=== PATIENT | male | born 1950 | race Caucasian/White ===

== ENCOUNTER 2018-01-28 09:43 | Inpatient (IN) | payer MEDICARE ==
[2018-01-28 09:59] VITALS: BMI 29.0
--- NOTE | 2018-01-28 10:43 | C.PDOC ---
History Of Present Illness 67 year old male sent to the ED by Dr. Caba for evaluation of pilonidal cyst/abscess. Patient denies any fever, chills, abdominal pain, vomiting, or other associated symptoms. There is no redness or drainage from the site. Time Seen by Provider: 01/28/18 09:49 Chief Complaint (Nursing): Abnormal Skin Integrity History Per: Patient History/Exam Limitations: no limitations Onset/Duration Of Symptoms: Days Current Symptoms Are (Timing): Still Present Quality Of Symptoms: Painful, Swollen Past Medical History Reviewed: Historical Data, Nursing Documentation, Vital Signs Vital Signs: Last Vital Signs Temp 98.0 F 01/28/18 09:59 Pulse 83 01/28/18 09:59 Resp 18 01/28/18 09:59 BP 103/86 01/28/18 09:59 Pulse Ox 95 01/28/18 09:59 - Medical History PMH: Arthritis, Diabetes, HTN, Hypercholesterolemia Other Surgeries: Cataract surgery - [facility] ENDOSC POLYPECTOMY OF LG INTEST (06/09/14) Family History: States: No Known Family Hx - Social History Hx Tobacco Use: No Hx Alcohol Use: No Hx Substance Use: No - Immunization History Hx Tetanus Toxoid Vaccination: Yes Hx Influenza Vaccination: No Hx Pneumococcal Vaccination: Yes Review Of Systems Except As Marked, All Systems Reviewed And Found Negative. Constitutional: Negative for: Fever, Chills Cardiovascular: Negative for: Chest Pain Respiratory: Negative for: Shortness of Breath Gastrointestinal: Negative for: Vomiting, Abdominal Pain Skin: Positive for: Other (Pilonidal abscess) Physical Exam - Physical Exam Appears: Well, Non-toxic, No Acute Distress Skin: Warm, Dry, Other (Small area of gluteal cleft appears swollen, with no erythema or fluctuance) Head: Atraumatic, Normacephalic Eye(s): bilateral: Normal Inspection Neck: Normal ROM, Supple Chest: Symmetrical Cardiovascular: Rhythm Regular, No Murmur Respiratory: Normal Breath Sounds, No Accessory Muscle Use Gastrointestinal/Abdominal: Soft, No Tenderness, No Distention Extremity: Bilateral: Atraumatic, Normal Color And Temperature, Normal ROM Pulses: Left Radial: Normal, Right Radial: Normal Neurological/Psych: Oriented x3, Normal Speech ED Course And Treatment - Laboratory Results Result Diagrams: 01/28/18 10:52 01/28/18 10:52 Lab Interpretation: Normal ECG: Interpreted By Me ECG Rhythm: Sinus Rhythm ECG Interpretation: Normal Rate From EC O2 Sat by Pulse Oximetry: 95 (RA) Pulse Ox Interpretation: Normal - Radiology CXR: Interpreted by Me CXR Interpretation: Yes: No Acute Disease Progress Note: Treated with IVF NSS Medical Decision Making Medical Decision Making: Impression: 67 year old with pilonidal abscess Plan: --EKG --CMP --CBC --PTT --Chest x-ray --IV fluids --Urinalysis --Reassess and disposition Paged Dr. Caba, plans to take patient to the OR. 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 - Scribe Statement The provider has reviewed the documentation as recorded by the Scribe (Beth Palomo) All medical record entries made by the Scribe were at my direction and personally dictated by me. I have reviewed the chart and agree that the record accurately reflects my personal performance of the history, physical exam, medical decision making, and the department course for this patient. I have also personally directed, reviewed, and agree with the discharge instructions and disposition. Decision To Admit - Pt Status Changed To: Hospital Disposition Of: SDS- Endo,OR,Cath,IR - . Bed Request Type: Same Day Surgery Admitting Physician: Dez Caba Patient Diagnosis: Abscess
[2018-01-28 10:58] LABS: BASO # 0.1 K/uL (0.0-0.2); EOS # 0.4 K/uL (0.0-0.7); EOS % 5.7 % (0.0-4.0); HEMOGLOBIN 12.9 g/dL (12.0-18.0); LYMPH # 1.7 K/uL (1.0-4.3); LYMPH % 25.9 % (20.0-40.0); MEAN CELL VOLUME 85.6 fL (80.0-94.0); MEAN CORPUSCULAR HEMOGLOBIN 28.7 pg (27.0-31.0); MEAN CORPUSCULAR HGB CONC 33.6 g/dL (33.0-37.0); MEAN PLATELET VOLUME 8.6 fL (7.2-11.7); MONO # 0.5 K/uL (0.0-0.8); MONO % 7.4 % (0.0-10.0); NRBC % 0.1 % (0.0-2.0); RBC 4.5 Mil/uL (4.40-5.90); RED CELL DISTRIBUTION WIDTH 13.6 % (11.5-14.5); WHITE BLOOD COUNT 6.6 K/uL (4.8-10.8)
[2018-01-28 11:03] LABS: SQUAMOUS EPITHIAL < 1 /hpf (0-5); URINE BILIRUBIN NEGATIVE (NEGATIVE); URINE BLOOD 1+ (NEGATIVE); URINE CLARITY Clear (Clear); URINE COLOR Yellow (YELLOW); URINE GLUCOSE (UA) NORMAL (Normal); URINE LEUKOCYTE ESTERASE NEG Leu/uL (Negative); URINE PROTEIN NEGATIVE (NEGATIVE); URINE UROBILINOGEN NORMAL mg/dL (0.2-1.0)
[2018-01-28 11:05] LABS: INR 1.2; PROTHROMBIN TIME 12.7 SECONDS (9.7-12.2)
--- NOTE | 2018-01-28 11:05 | RAD ---
Date of service: 01/28/2018 HISTORY: SOB COMPARISON: No prior. TECHNIQUE: Chest PA and lateral FINDINGS: LUNGS: No active pulmonary disease. PLEURA: Elevated right hemidiaphragm, nonspecific. No change from prior. No pleural effusion or pneumothorax. CARDIOVASCULAR: Normal. OSSEOUS STRUCTURES: No significant abnormalities. VISUALIZED UPPER ABDOMEN: Normal. OTHER FINDINGS: None. IMPRESSION: No active disease.
[2018-01-28] MEDS: Sodium Chloride 0.9% 1,000 ML IV SCH ×2 (11:11→20:56)
[2018-01-28 11:14] LABS: ALB/GLOB RATIO 1.4 (1.0-2.1); ALT/SGPT 35 U/L (21-72); AST/SGOT 20 U/L (17-59); BLOOD UREA NITROGEN 19 mg/dL (9-20); CALCIUM 9.3 mg/dl (8.6-10.4); GFR NON-AFRICAN AMERICAN > 60
[2018-01-28] MEDS ORDERED: ceFAZolin 1 gm FROZEN Premix 1 GM/50 ML ML IVPB ONE (12:15)
[2018-01-28] MEDS ORDERED: Midazolam 2 MG/2 ML VIAL ONE (12:20)
[2018-01-28] MEDS ORDERED: Propofol 10 mg/ml Inj (20 ML) ONE (12:20)
[2018-01-28] MEDS: Bupivacaine 0.25% 20 ML INJ IJ ONE (12:40)
[2018-01-28] MEDS ORDERED: HYDROmorphone 0.5 mg/0.5 ml ISec IVP PRN (12:50)
[2018-01-28] MEDS ORDERED: Oxycodone/Acetaminophen 5/325 mg Tab PO PRN (13:52)
[2018-01-28] MEDS ORDERED: ceFAZolin IV 1 gm in Dextrose 1 GM/50 ML BAG IVPB SCH (16:00)
[2018-01-28] MEDS: ceFAZolin IV 1 gm in Dextrose 1 GM/50 ML BAG IVPB SCH (23:06)
[2018-01-29] MEDS: ceFAZolin IV 1 gm in Dextrose 1 GM/50 ML BAG IVPB SCH ×3 (05:32→13:45)
[2018-01-29] MEDS: Sodium Chloride 0.9% 1,000 ML IV SCH ×2 (06:45→10:59)
--- NOTE | 2018-01-29 07:57 | OP ---
PROCEDURE DATE: 01/28/2018 PREOPERATIVE DIAGNOSIS: Infected sacral mass. POSTOPERATIVE DIAGNOSIS: Infected sacral mass. PROCEDURE PERFORMED: Wide and deep excision of sacral mass with removal of sacral abscess. SURGEON: Dez Caba MD ANESTHESIA: General. BLOOD LOSS: 20 mL. POSTOPERATIVE CONDITION: Stable. INDICATION FOR SURGERY: This is a 67-year-old male, presents with an infection on his infected mass on his sacral area which does not appear to be pilonidal cyst. He will now undergo wide and deep excision along with drainage. DESCRIPTION OF THE PROCEDURE: The patient was taken to the operating room, placed in prone position. IV sedation was administered along with local anesthesia. A generous elliptical incision was made surrounding the infected mass. The cavity was traced inferiorly and completely excised. Bleeding was controlled using a Bovie, and a larger blood vessel was repaired. The wound was pulse irrigated with saline solution, and a partial tissue transfer closure was performed by fully mobilizing, performing counter incisions and using heavy Monocryl. The central portion of the wound was packed up with saline gauze. The patient tolerated the procedure well and returned to recovery room in stable condition. Dez Caba MD
[2018-01-29 08:35] LABS: BASO # 0.1 K/uL (0.0-0.2); BASO % 0.7 % (0.0-2.0); EOS # 0.4 K/uL (0.0-0.7); EOS % 4.7 % (0.0-4.0); HEMOGLOBIN 12.1 g/dL (12.0-18.0); LYMPH # 2.3 K/uL (1.0-4.3); LYMPH % 30.4 % (20.0-40.0); MEAN CELL VOLUME 85.2 fL (80.0-94.0); MEAN CORPUSCULAR HEMOGLOBIN 29.2 pg (27.0-31.0); MEAN CORPUSCULAR HGB CONC 34.3 g/dL (33.0-37.0); MEAN PLATELET VOLUME 8.3 fL (7.2-11.7); MONO # 0.6 K/uL (0.0-0.8); MONO % 7.6 % (0.0-10.0); NEUT # 4.3 K/uL (1.8-7.0); NEUT % 56.6 % (50.0-75.0); NRBC % 0.1 % (0.0-2.0); RBC 4.15 Mil/uL (4.40-5.90); RED CELL DISTRIBUTION WIDTH 13.5 % (11.5-14.5); WHITE BLOOD COUNT 7.6 K/uL (4.8-10.8)
[2018-01-29 09:17] LABS: BLOOD UREA NITROGEN 14 mg/dL (9-20); CALCIUM 8.8 mg/dl (8.6-10.4); GFR NON-AFRICAN AMERICAN > 60
[2018-01-29] MEDS ORDERED: Influenza Vaccine 60 MCG/0.5 ML SYR (3 yr & up) IM ONE (10:00)
[2018-01-29] MEDS: Bupivacaine 0.25% 20 ML INJ IJ ONE (13:20)
[2018-01-29] MEDS ORDERED: Propofol 10 mg/ml Inj (20 ML) ONE (13:44)
[2018-01-29] MEDS ORDERED: Lidocaine Hydrochloride 20 ML INJ ONE (13:44)
[2018-01-29] MEDS ORDERED: Midazolam 2 MG/2 ML VIAL ONE (13:44)
[2018-01-29] MEDS ORDERED: Bupivacaine 0.25% 20 ML INJ IJ ONE (13:44)
[2018-01-29] MEDS ORDERED: Bacitracin Ointment 30 GM TUBE ONE (14:01)
[2018-01-29] MEDS ORDERED: HYDROmorphone 0.5 mg/0.5 ml ISec IVP PRN (14:09)
[2018-01-29 16:02] VITALS: BP 112/72; PULSE 71; RESP 20; TEMP 97.4; O2SAT 96
--- NOTE | 2018-01-29 23:10 | CARD ---
APPROVED REPORT Date of service: 01/28/2018 EKG Measurement Heart [id number] <Conclusion> Normal sinus rhythm Normal ECG
--- NOTE | 2018-01-30 02:51 | OP ---
PROCEDURE DATE: 01/29/2018 PREOPERATIVE DIAGNOSIS: Status post sacral abscess and excision of sacral mass. POSTOPERATIVE DIAGNOSIS: Status post sacral abscess and excision of sacral mass. PROCEDURE PERFORMED: Debridement and re-drainage of sacral abscess with advancement flap closure. SURGEON: Dez Caba MD TYPE OF ANESTHESIA: General. ESTIMATED BLOOD LOSS: 30 mL. POSTOPERATIVE CONDITION: Stable. INDICATIONS FOR SURGERY: This is a 67-year-old male who underwent drainage of a sacral abscess yesterday with excision of infected sacral mass today. The wound was left open and packed. Today, he is brought back to the operating room for further debridement, pulse irrigation, and closure. DESCRIPTION OF PROCEDURE: The patient was taken to the operating room, placed in the prone position. IV sedation was administered. The sacral buttock area was prepped and draped. The area of the open wound was anesthetized with 1% lidocaine and the wound was pulse irrigated with saline and Kantrex solution. All necrotic tissue was further debrided and any remaining collections were drained and cultured. Bleeding was controlled using the Bovie. Full-thickness tissue flaps were raised including counterincisions and an advancement flap closure was performed with multiple layers of Monocryl, subcuticular Monocryl. The patient tolerated the procedure well and returned to recovery room in stable condition. Dez Caba MD
[2018-01-30] MEDS ORDERED: Influenza Vaccine 60 MCG/0.5 ML SYR (3 yr & up) IM ONE (10:00)
== END 2018-01-29 18:11 | disposition home or self-care (01) | DRG 572 ==
LOC: C.5S 09:43 → C.ER 09:43 → C.SDS 11:34 → C.ER 11:41 → C.SDS 11:53 → C.9S 13:53 → C.5S 18:51
PROVIDERS: ADMIT Surgery; ATTEND Surgery
PROC: 0JB90ZZ Excision of Buttock Subcutaneous Tissue and Fascia, Open Approach (ICD-10-PCS; principal; 2018-01-28 11:30)
PROC: 0JD70ZZ Extraction of Back Subcutaneous Tissue and Fascia, Open Approach (ICD-10-PCS; 2018-01-29)
DX: L05.01 Pilonidal cyst with abscess (principal)

== ENCOUNTER 2018-08-28 14:43 | Outpatient (CLI) | payer MEDICARE, OTHER | END 2018-08-28 14:44 | disposition home or self-care (01) | LOC: C.RADH 14:43 | DX: M25.511 Pain in right shoulder (principal); M25.512 Pain in left shoulder ==